=== PATIENT | male | born 1955 | race African-American/Black ===

== ENCOUNTER 2019-08-10 22:54 | Emergency (ER) | payer MEDICAID ==
[~2019-08-10] VITALS: Ht 172.7 cm; Wt 73.0 kg
[2019-08-10 23:04] VITALS: BP 124/78
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
[2019-08-11] MEDS ORDERED: ACETAMINOPHEN 500 MG TABLET PO ONE
== END 2019-08-11 00:15 | disposition home or self-care (01) ==
LOC: ER 22:54
DX: R51 Headache (principal); G89.11 Acute pain due to trauma; J44.9 Chronic obstructive pulmonary disease, unspecified; F20.9 Schizophrenia, unspecified; F17.200 Nicotine dependence, unspecified, uncomplicated; Y04.2XXA Assault by strike against or bumped into by another person, initial encounter; Y93.89 Activity, other specified; Y92.89 Other specified places as the place of occurrence of the external cause; Y99.8 Other external cause status
CPT/HCPCS: 99283